=== PATIENT | male | born 1980 | race Caucasian/White ===

== ENCOUNTER → 2024-03-08 08:17 | Outpatient (REF) | payer BC, SELFPAY | LOC: HWRAD 08:17 | PROVIDERS: ATTENDING PHYSICIAN Nurse Practitioner Family; FAMILY PHYSICIAN Family Medicine | DX: R19.09 Other intra-abdominal and pelvic swelling, mass and lump (principal) | CPT/HCPCS: 76882 ==

== ENCOUNTER 2024-09-10 12:31 | Emergency (ER) | payer BC, SELFPAY ==
[2024-09-10 12:33] VITALS: BP 163/101
[2024-09-10 13:41] LABS: % Basophils 0.9 % (0-2); % Eosinophils 1.9 % (0-6); % Immature Granulocytes 0.3 % (0-0.5); % Lymphocytes 23.2 % (20.5-51.1); % Monocytes 7.5 % (1.7-9.3); % Neutrophils 66.2 % (42.2-75.2); Absolute Basophils 0.1 10^3/uL (0-0.2); Absolute Eosinophils 0.1 10^3/uL (0-0.7); Absolute Lymphocytes 1.6 10^3/uL (1.2-3.4); Absolute Monocytes 0.5 10^3/uL (0.1-0.6); Absolute Neutrophils 4.5 10^3/uL (1.4-6.5); Hematocrit 42.7 % (39.0-52.0); Hemoglobin 14.7 g/dL (13.0-18.0); Mean Corp Hgb Conc. 34.4 g/dL (33.0-37.0); Mean Corpuscular Hgb 30.4 pg (27.0-31.0); Mean Corpuscular Volume 88.4 fL (80.0-94.0); Mean Platelet Volume 9.4 fL (7.4-10.4); Nucleated Red Blood Cells % 0 % (-); Platelet Count 206 10^3/uL (130-400); Red Blood Cell Count 4.83 10^6/uL (4.70-6.10); Red Cell Dist. Width 12.4 % (11.5-14.5); White Blood Cell Count 6.8 10^3/uL (4.8-10.8)
[2024-09-10 13:59] LABS: ALT (SGPT) 23 U/L (0-50); AST (SGOT) 24 U/L (17-59); Albumin 4.4 g/dl (3.5-5.0); Alkaline Phosphatase 44 U/L (38-126); Blood Urea Nitrogen 19 mg/dl (9-20); Calcium 9.5 mg/dl (8.4-10.2); Carbon Dioxide 28 mmol/L (22-30); Chloride 103 mmol/L (98-107); Glucose 104 mg/dl (70-99); Lipase 141 U/L (23-300); Potassium 4.4 mmol/L (3.5-5.1); Sodium 139 mmol/L (135-145); Total Bilirubin 0.6 mg/dl (0.2-1.3); eGFR > 60.00
--- NOTE | 2024-09-10 15:13 | ED.GENMED ---
History of Present Illness
<Zeina Finch MD, Resident - Last Filed: 09/10/24 17:02>
General
Chief Complaint: Abdominal Pain
Time Seen by Provider: 09/10/24 15:00
History of Present Illness
History of Present Illness:
44-year-old male with no significant past medical history presenting to the ED with abdominal pain. Patient notes pain started about 1 to 2 weeks ago located in the right upper quadrant. Pain was initially intermittent but has been more constant
and severe (6 out of 10) for the past 2 days. Is associated with nausea and radiates to the right posterior shoulder. Patient notes pain is aggravated with meals and is relieved with lying down. Denies fever, vomiting, change in bowel movements,
urinary symptoms, chest pain, URI, shortness of breath. Patient states had abdominal pain in the lower abdomen and around 1 year ago but has never had RUQ pain. Did not take any medications for his symptoms. Had a recent travel to [place] this
week.
Past History
<Zeina Finch MD, Resident - Last Filed: 09/10/24 17:02>
Past History
ED Past Medical History: Other (Left inguinal hernia)
ED Past Surgical History: None
Review of Systems
<Zeina Finch MD, Resident - Last Filed: 09/10/24 17:02>
Review of Systems
Constitutional: Reports no symptoms
EENT: Reports no symptoms
Respiratory: Reports no symptoms
Cardiac: Reports no symptoms
ABD/GI: Reports abdominal pain and nausea
: Reports no symptoms
Musculoskeletal: Reports no symptoms
Skin: Reports no symptoms
Neurological: Reports no symptoms
Endocrine: Reports no symptoms
Hematologic/Lymphatic: Reports no symptoms
Psychiatric: Reports no symptoms
Phy Exam
<Zeina Finch MD, Resident - Last Filed: 09/10/24 17:02>
Physical Exam
Physical Exam:
GENERAL: Alert, awake, in no apparent distress.
EYE: pupils equal and reactive.
NECK: Supple, no significant adenopathy.
ENT: o/p clr, mmm.
CARDIAC: Regular rate and rhythm.
LUNGS: Clear breath sounds bilaterally, no acute respiratory distress, no wheezes/rales/rhonchi.
ABDOMEN: Soft, without focal tenderness, no r/g, no cvat.
NEUROLOGICAL: Alert and oriented, no focal neuro deficits.
SKIN: Warm and dry, skin intact.
MUSCULOSKELETAL: No edema, well perfused.
PSYCH: Normal and appropriate interaction.
Course
<Zeina Finch MD, Resident - Last Filed: 09/10/24 17:02>
Orders/Labs/Results
Orders:
Orders
09/10/24 13:20
Complete Blood Count/With Diff Urgent
Comprehensive Metabolic Panel Urgent
Lipase Urgent
09/10/24 15:21
US Abdomen Complete/Upper Urgent
Comment:
Reason For Exam: RUQ pain
Abnormal Lab Results
09/10/24
13:20
Glucose 104 H mg/dl
(70-99)
09/10/24 13:20
09/10/24 13:20
Vital Signs
Initial and Last Documented VS:
Initial Vital Signs
Temp Pulse Resp BP Pulse Ox
98.2 F 93 16 163/101 98
09/10/24 12:33 09/10/24 12:33 09/10/24 12:33 09/10/24 12:33 09/10/24 12:33
Last Documented Vital Signs
Temp Pulse Resp BP Pulse Ox
98.2 F 93 16 163/101 98
09/10/24 12:33 09/10/24 12:33 09/10/24 12:33 09/10/24 12:33 09/10/24 12:33
<Blayne Camargo, DO - Last Filed: 09/10/24 15:27>
Orders/Labs/Results
Orders:
Orders
09/10/24 13:20
Complete Blood Count/With Diff Urgent
Comprehensive Metabolic Panel Urgent
Lipase Urgent
09/10/24 15:21
US Abdomen Complete/Upper Urgent
Comment:
Reason For Exam: RUQ pain
Abnormal Lab Results
09/10/24
13:20
Glucose 104 H mg/dl
(70-99)
09/10/24 13:20
09/10/24 13:20
Vital Signs
Initial and Last Documented VS:
Initial Vital Signs
Temp Pulse Resp BP Pulse Ox
98.2 F 93 16 163/101 98
09/10/24 12:33 09/10/24 12:33 09/10/24 12:33 09/10/24 12:33 09/10/24 12:33
Last Documented Vital Signs
Temp Pulse Resp BP Pulse Ox
98.2 F 93 16 163/101 98
09/10/24 12:33 09/10/24 12:33 09/10/24 12:33 09/10/24 12:33 09/10/24 12:33
<Zeina Finch MD, Resident - Last Filed: 09/10/24 17:02>
MDM/Problems Addressed
Differential Diagnosis Includes:
Biliary colic/cholelithiasis
Pancreatitis
MDM/Problems Addressed:
- CBC, CMP
- Lipase
- Abd US
- Pain management
<Zeina Finch MD, Resident - Last Filed: 09/10/24 17:02>
*Critical Care Note
Total Time (30-74mins, 75-104mins- exclusive of procedures): Not Applicable
<Zeina Finch MD, Resident - Last Filed: 09/10/24 17:02>
Update Note
Update Note:
1615... US showed trace sludge within the gallbladder with no gallstones and no evidence for gallbladder wall thickening or pericholecystic edema. Negative sonographic Campos sign. No biliary duct dilation. Splenomegaly.
Patient is not symptomatic. Will discharge patient with plan for outpatient GI follow-up.
ED Attending Note
<Zeina Finch MD, Resident - Last Filed: 09/10/24 17:02>
-
Portions of this chart may have been created with voice recognition software.� Occasional wrong word or��sound alike� substitutions may have occurred due to the inherent limitations of voice recognition software.
<Blayne Camargo DO - Last Filed: 09/10/24 15:27>
ED Attending Note
Patient seen and examined by attending physician: Yes
I performed a history and physical exam of patient and discussed management with resident, I reviewed resident's note and agree with documented findings and plan of care.: Yes
ED Attending Note:
I evaluated the patient at bedside. CBC including white count as well as LFTs and lipase are normal. He currently has no significant pain and has no tenderness on examination. Will obtain ultrasound of the right upper quadrant.
Discharge Plan
Departure
Patient Disposition: Home (Routine Discharge)
Date of Disposition: 09/10/24
Time of Disposition: 16:16
Patient with high blood pressure during this ER visit?: No
Condition: Good
Discharge Problem:
Abdominal pain, RUQ
Instructions: Gallstones (DC), Abdominal Pain
Prescriptions:
New
ondansetron HCl 4 mg tablet
4 mg PO DAILY Qty: 6 0RF
Referrals:
Carlos Callejas MD [Family Provider] -
Hui Shane, [Active] -
Activity Restrictions/Additional Instructions:
You were seen for abdominal pain today. Your ultrasound showed trace sludge in your gallbladder with no gallstones. You should follow-up with a surgical forceps fabricator.
You should return to the emergency department if you develop severe abdominal pain, severe nausea/vomiting, fever, confusion, or any other symptoms that are concerning to you.
Interventions
Interventions:
*Risk Screen - Suicide Last Done: 09/10/24 12:33
*General Assessment Last Done: 09/10/24 12:33
*Neglect/Abuse Screening Last Done: 09/10/24 12:33
*ED COVID-19 Vaccine History Last Done: 09/10/24 12:33
Discharge Date and Time
Print Language: YAKUT
== END 2024-09-10 16:45 | disposition home or self-care (01) ==
LOC: EMR 12:31
PROVIDERS: Emergency Medicine; EMERGENCY PHYSICIAN Emergency Medicine; FAMILY PHYSICIAN Family Medicine
DX: R10.11 Right upper quadrant pain (principal); K82.8 Other specified diseases of gallbladder
CPT/HCPCS: 99284; 76700; 80053; 83690; 85025

== ENCOUNTER 2024-11-11 06:15 | Day surgery (SDC) | payer BC, SELFPAY | END 2024-11-11 12:20 | disposition home or self-care (01) | LOC: GI 06:15 | PROVIDERS: ATTENDING PHYSICIAN Internal Medicine | DX: Z12.11 Encounter for screening for malignant neoplasm of colon (principal); K57.30 Diverticulosis of large intestine without perforation or abscess without bleeding; K64.8 Other hemorrhoids; R10.13 Epigastric pain; K22.89 Other specified disease of esophagus; K44.9 Diaphragmatic hernia without obstruction or gangrene; D12.3 Benign neoplasm of transverse colon; K29.50 Unspecified chronic gastritis without bleeding; K63.5 Polyp of colon; Z80.0 Family history of malignant neoplasm of digestive organs; K22.70 Barrett's esophagus without dysplasia | CPT/HCPCS: 45385; 45380; 43239; 88305; 88342 ==

== ENCOUNTER 2025-03-22 05:50 | Day surgery (SDC) | payer BC, SELFPAY ==
[2025-03-22] VITALS (10 sets, daily range): BP systolic 122–137; BP diastolic 72–85; BMI 27.4
[2025-03-22] MEDS: TYLENOL 1000 MG PO (06:30)
[2025-03-22] MEDS: HEPARIN 5000 UNITS SC (06:30)
[2025-03-22] MEDS: NORMOSOL-R/PLASMALYTE-A 1000 IV (06:31)
[2025-03-22] MEDS: DILAUDID 0.5 MG IV ×2 (09:49→10:03)
--- NOTE | 2025-03-22 10:12 | W.IMMPOSTOP ---
Surgical Immed Post Op Note
-
Primary Surgeon: Pernell
Assisting: [facility] MAIN
Pre-op Diagnosis: Bilateral inguinal hernias, reducible umbilical hernia
Post-op Diagnosis: Bilateral inguinal hernias, incarcerated umbilical hernia
Procedure Performed: Robot assisted laparoscopic repair of bilateral inguinal and incarcerated umbilical hernias
Anesthesia Type: GETA
Specimen / Cultures: None
Estimated Blood Loss: 5cc
Complications: None immediate
Operative Findings: Bilateral indirect defect, fatty cords, small cord lipoma right side, B/L 3D Max MID; 7mm umbilical defect with incarcerated fat closed primarily with 0 PDS stratafix
--- NOTE | 2025-03-22 10:14 | OR.RPT ---
Operative Report
Operative Report
Primary Surgeon: Pernell
Assisting: [facility] MAIN
Pre-op Diagnosis: Bilateral inguinal hernias, reducible umbilical hernia
Post-op Diagnosis: Bilateral inguinal hernias, incarcerated umbilical hernia
Procedure Performed: Robot assisted laparoscopic repair of bilateral inguinal and incarcerated umbilical hernias
Anesthesia Type: GETA
Specimen / Cultures: None
Estimated Blood Loss: 5cc
Complications: None immediate
Operative Findings: Bilateral indirect defect, fatty cords, small cord lipoma right side, B/L 3D Max MID; 7mm umbilical defect with incarcerated fat closed primarily with 0 PDS stratafix
Date of Surgery: 03/22/25
Indications: This 45M developed symptomatic left inguinal hernia. On exam a right inguinal hernia and umbilical hernia were diagnosed. He asked that we repair all three hernias today. Robot assisted laparoscopic repair was elected.
Description of procedure:� The patient was taken to the operating room and positioned into supine position. The patient�s abdomen was prepped and draped in standard sterile fashion. A time-out was completed verifying correct patient, procedure,
site, positioning, and implants and special equipment prior to beginning this procedure. The hernia was manually reduced.
A stab incision was made in the left upper quadrant, a Veress needle was inserted and proper position was confirmed by aspiration and saline drop test. Following this, pneumoperitoneum was created with insufflation of carbon dioxide to 12 mmHg. Then
a 8mm robotic trocar was inserted above and to the left of the umbilicus. A laparoscope was inserted and the area of initial trocar entry and Veress needle placement were both inspected and no injuries were found. Two 8mm trocars were then placed
lateral to the rectus sheath under direct visualization.
Both inguinal regions were inspected and the median umbilical ligament, medial umbilical ligament, and lateral umbilical fold were identified. Attention was turned to the right groin. The peritoneum was incised transversely above the defect and a
flap was developed in the caudad direction. Lisandro�s ligament was identified ultimately dissected to its junction with the iliac vein and the space of Retzius was developed bluntly. The dissection was continued inferiorly to the iliopubic tract,
with care taken to avoid injury to the femoral branch of the genitofemoral nerve and the lateral femoral cutaneous nerve. The cord structures were parietalized.
The direct space was inspected and no hernia defect was identified. The femoral space was inspected and no defect was identified. The indirect space was inspected and a small hernia defect was identified and reduced. The canal was inspected and a
small cord lipoma was identified and reduced.
Attention was turned to the left groin and the above process was repeated. A moderate indirect defect was reduced. No cord lipoma was identified in the canal. Cords were fatty on both sides.
Extra large right and left MID 3D max mesh was passed through a trocar. The mesh was placed into the preperitoneal space and moved into position to lay flat and completely cover the direct, indirect, and femoral spaces with overlap at the midline.
The mesh was secured into place using 2-0 vicryl suture to Lisandro�s ligament medially and laterally. Care was taken to avoid the inferolateral triangles containing the iliac vessels and genital nerves. The peritoneal flap was closed over the mesh
and secured with 2-0 monocryl stratafix suture in similar positions of safety. A large flap rent at the hernia sac was closed with 2-0 monocryl stratatfix suture. A 14g angiocath was used to decompress the preperitoneal space revealing good seal and
all mesh in good position without folding or curling.
Attention was turned to the umbilical defect. An incision was made in the peritoneum superior to the defect and the defect was exposed by creating a small preperitoneal pocket and clearing surrounding preperitoneal fat from the hernia. Incarcerated
fat was reduced from the defect. The defect measured as above and was closed primarily with 0 PDS stratafix. The peritoneum was then reapproximated with 2-0 monocryl stratafix suture.
After ensuring adequate hemostasis, the trocars were removed and the pneumoperitoneum allowed to escape. The trocar incisions were closed at the skin level using 4-0 monocryl and topical skin adhesive. All counts were correct and the patient
tolerated the procedure well and was taken to the postanesthesia care unit in stable condition.
[2025-03-22] MEDS: ZOFRAN 4 MG IV (10:50)
[2025-03-22] MEDS: TYLENOL 650 MG PO (12:34)
== END 2025-03-22 12:46 | disposition home or self-care (01) ==
LOC: SDS 05:50
PROVIDERS: ATTENDING PHYSICIAN Surgery
DX: K40.20 Bilateral inguinal hernia, without obstruction or gangrene, not specified as recurrent (principal); K42.0 Umbilical hernia with obstruction, without gangrene
CPT/HCPCS: 49650; 49592; C1781